=== PATIENT | female | born 2005 | race Hispanic/Latino ===

== ENCOUNTER 2024-03-28 17:13 | Emergency (ER) | payer SELFPAY ==
[~2024-03-28] VITALS: Ht 157.5 cm; Wt 72.6 kg
[2024-03-28 17:33] VITALS: TEMP 98.8
[2024-03-28] MEDS: ONDANSETRON HCL 4 MG ORAL DISINTEGRATING TAB PO ONE (18:38)
[2024-03-28] MEDS: ACETAMINOPHEN 325 MG TAB PO ONE (18:39)
[2024-03-28 18:40] VITALS: PULSE 94; RESP 16
[2024-03-28] MEDS ORDERED: ONDANSETRON ODT4 MG SL (19:40)
[2024-03-28 19:50] VITALS: BP 120/78; PULSE 96; RESP 16; O2SAT 100
== END 2024-03-28 19:52 | disposition home or self-care (01) ==
LOC: ER 17:20
DX: S06.0X0A Concussion without loss of consciousness, initial encounter (principal); R11.2 Nausea with vomiting, unspecified; R42 Dizziness and giddiness; R51.9 Headache, unspecified; V43.62XA Car passenger injured in collision with other type car in traffic accident, initial encounter; Y92.488 Other paved roadways as the place of occurrence of the external cause; F41.9 Anxiety disorder, unspecified; F32.A Depression, unspecified
CPT/HCPCS: 70450; 99283; Q0162